=== PATIENT | male | born 1985 | race Caucasian/White ===

== ENCOUNTER 2018-02-04 21:47 | Emergency (ER) | payer BC ==
[~2018-02-04] VITALS: Ht 175.3 cm; Wt 81.6 kg
--- NOTE | 2018-02-04 22:20 | NUR ---
PT AMBULATORY TO ER BED 13. BIB SELF C/I HEADACHE WITH NAUSEA X 3 DAYS. DENIES VOMITING. 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 PT VSS/NAD NOTED/RESP EVEN UNLABORED/SKIN WARM AND DRY/AFEBRILE/AOX4. AWAITING MD ALFREDO.
[2018-02-04] MEDS ORDERED: ONDANSETRON HCL/PF 4 MG/2 ML VIAL IVP ONE (22:30)
[2018-02-04] MEDS ORDERED: IV NS 0.9% 1,000 ML BAG IV ONE (22:30)
--- NOTE | 2018-02-04 22:38 | NUR ---
18G IV TO L AC X 1 ATTEMPT USING ASEPTIC TECHNIQUE, BLOOD HANDED OVER TO THE LAB AT THE BEDSIDE. IV FLUSHES EASILY WITH NS, NO S/S INFILTRATION NOTED AT THIS TIME.
[2018-02-04 22:40] LABS: BASOPHILS # (AUTO) 0.1 /CMM (0.0-0.2); BASOPHILS % (AUTO) 0.8 % (0.0-2.0); EOSINOPHILS % (AUTO) 3.4 % (0.0-6.0); HEMATOCRIT 45 % (39-51); HEMOGLOBIN 15.3 g/dL (13.5-17.5); LYMPHOCYTES # (AUTO) 2.3 /CMM (0.8-4.8); LYMPHOCYTES % (AUTO) 28.8 % (20.0-44.0); MEAN CORPUSCULAR HGB CONC 34 g/dl (31.0-36.0); MEAN CORPUSCULAR VOLUME 93 fL (80-96); MONOCYTES # (AUTO) 0.7 /CMM (0.1-1.30); MONOCYTES % (AUTO) 8.2 % (2.0-12.0); NEUTROPHILS # (AUTO) 4.8 /CMM (1.8-8.9); NEUTROPHILS % (AUTO) 58.8 % (43.0-81.0); PLATELET COUNT (AUTO) 172 /CMM (150-450); RDW COEFFICIENT OF VARIATION 13.5 (11.5-15.0); RED BLOOD CELL COUNT(AUTO) 4.87 MIL/uL (4.5-6.0); WHITE BLOOD COUNT (AUTO) 8.1 K/uL (4.3-11.0)
[2018-02-04] MEDS ORDERED: ONDANSETRON HCL/PF 4 MG/2 ML VIAL ONE (22:41)
[2018-02-04 22:53] LABS: POTASSIUM 3.9 mmol/L (3.5-5.1)
[2018-02-04 23:01] LABS: ALBUMIN 4.4 g/dL (3.4-5.0); BILIRUBIN,DIRECT 0.1 mg/dL (0.0-0.2); BILIRUBIN,TOTAL 0.5 mg/dL (0.2-1.0); TOTAL PROTEIN, SERUM 8.3 g/dL (6.4-8.2)
[2018-02-04 23:26] VITALS: BP 130/85
--- NOTE | 2018-02-04 23:26 | NUR ---
Patient discharged to home in stable condition. Written and verbal after care instructions given. Patient verbalizes understanding of instruction.IV removed. Catheter intact and site benign. Pressure and 4x4 applied to site. No bleeding noted. Prescription given.
== END 2018-02-04 23:27 | disposition home or self-care (01) ==
LOC: ER 21:51
DX: L23.7 Allergic contact dermatitis due to plants, except food (principal); R11.0 Nausea; R94.31 Abnormal electrocardiogram [ECG] [EKG]
CPT/HCPCS: 36415; 80048; 80076; 85025; 87040 ×2; 93005; 96361; 96374; 99285; A4606; J2405; J7030; Z7610

== ENCOUNTER 2020-10-27 04:33 | Emergency (ER) | payer BC ==
[~2020-10-27] VITALS: Ht 170.2 cm; Wt 68.0 kg
[2020-10-27] MEDS ORDERED: ONDANSETRON HCL/PF 4 MG/2 ML VIAL ONE ×2 (04:48→05:41)
--- NOTE | 2020-10-27 04:53 | NUR ---
BIBS FOR C/O GENERALIZED ABD PAIN, NAUSEA AND NON-BLOODY DIARRHEA X 1 DAY, DENIED DYSURIA OR HEMATURIA. AMBULATORY TO THE BATHROOM, ABLE TO PROVIDE URINE SAMPPLE. PT WAS PLACED IN ROOM 3 ER, ON MONITOR, VSS .WILL CONT TO MONITOR,
[2020-10-27] MEDS ORDERED: IV NS 0.9% 1,000 ML IV ONE (05:00)
[2020-10-27] MEDS ORDERED: ONDANSETRON HCL/PF - ER 4 MG/2 ML VIAL IV ONE (05:00)
[2020-10-27 05:11] LABS: BASOPHILS % (AUTO) 0.2 % (0.0-2.0); EOSINOPHILS % (AUTO) 1.1 % (0.0-6.0); HEMATOCRIT 47 % (39-51); HEMOGLOBIN 15.8 g/dL (13.5-17.5); LYMPHOCYTES # (AUTO) 1.1 /CMM (0.8-4.8); LYMPHOCYTES % (AUTO) 8.7 % (20.0-44.0); MEAN CORPUSCULAR HGB CONC 34 g/dl (31.0-36.0); MEAN CORPUSCULAR VOLUME 92 fL (80-96); MONOCYTES % (AUTO) 8.1 % (2.0-12.0); NEUTROPHILS # (AUTO) 10.1 /CMM (1.8-8.9); NEUTROPHILS % (AUTO) 81.9 % (43.0-81.0); PLATELET COUNT (AUTO) 167 /CMM (150-450); RED BLOOD CELL COUNT(AUTO) 5.12 MIL/uL (4.5-6.0); WHITE BLOOD COUNT (AUTO) 12.4 K/uL (4.3-11.0)
[2020-10-27 05:14] LABS: BILIRUBIN,URINE NEGATIVE (NEGATIVE); COLOR,URINE YELLOW (YELLOW); LEUKOCYTE ESTERASE ,URINE NEGATIVE (NEGATIVE); NITRITE, URINE NEGATIVE (NEGATIVE); PH,URINE 6.5 (5.0-8.0); PROTEIN,URINE NEGATIVE (NEGATIVE); UGLUCOSE NEGATIVE (NEGATIVE); UROBILINOGEN,URINE 0.2 EU/dL (0.2)
[2020-10-27 05:30] LABS: ALBUMIN 4.2 g/dL (3.4-5.0); BILIRUBIN,DIRECT 0.1 mg/dL (0.0-0.2); BILIRUBIN,TOTAL 0.5 mg/dL (0.2-1.0); CALCIUM, SERUM 9.1 mg/dL (8.5-10.1); CREATININE 1.1 mg/dL (0.6-1.3); POTASSIUM 3.7 mmol/L (3.5-5.1); TOTAL PROTEIN, SERUM 8.3 g/dL (6.4-8.2)
[2020-10-27 05:30] LABS: BACTERIA,URINE None seen /HPF (None Seen); RBC,URINE 0-2 /HPF (0-2); SQUAMOUS EPITHELIAL CELL,UR Few /HPF (None Seen); WBC,URINE 0-2 /HPF (0-3)
[2020-10-27] MEDS ORDERED: ONDA4TAB5 PO (06:00)
[2020-10-27] MEDS ORDERED: ONDANSETRON HCL/PF 4 MG/2 ML VIAL IV ONE (06:00)
[2020-10-27] MEDS ORDERED: TRAM50TA2 PO (06:00)
[2020-10-27] MEDS ORDERED: METO-295 PO (06:01)
[2020-10-27] MEDS ORDERED: METOCLOPRAMIDE HCL 10 MG/2 ML VIAL ONE (06:27)
[2020-10-27] MEDS ORDERED: METOCLOPRAMIDE HCL 10 MG/2 ML VIAL IV ONE (06:30)
--- NOTE | 2020-10-27 06:38 | NUR ---
IV removed. Catheter intact and site benign. Pressure and 4x4 applied to site. No bleeding noted.
--- NOTE | 2020-10-27 06:38 | NUR ---
Patient discharged to home in stable condition. Written and verbal after care instructions given. Patient verbalizes understanding of instruction.
[2020-10-27 06:39] VITALS: BP 123/74
== END 2020-10-27 06:39 | disposition home or self-care (01) ==
LOC: ER 04:36
DX: R10.84 Generalized abdominal pain (principal); R19.7 Diarrhea, unspecified; R11.0 Nausea; F41.9 Anxiety disorder, unspecified
CPT/HCPCS: 36415; 74176; 80048; 80076; 81001; 83690; 85025; 96361; 96374; 96375; 96376; 99284; J2405 ×2; J2765; J7030